=== PATIENT | male | born 1975 | race Caucasian/White ===

== ENCOUNTER 2024-12-10 14:46 | Emergency (ER) | payer OTHER ==
[~2024-12-10 14:46] MED LIST: Iopamidol-370 76% 500 ML MDV (1 ML CHARGE) ONE
[2024-12-10] MEDS ORDERED: Pantoprazole 40 MG VIAL ONE (15:43)
[2024-12-10] MEDS ORDERED: Ondansetron PF 4 MG/2 ML Vial ONE (15:43)
[2024-12-10] MEDS ORDERED: Famotidine/PF 20 mg/2ml Vial ONE (15:43)
[2024-12-10 16:04] LABS: #Basophils 0.06 10x3/uL (0.0-0.2); #Eosinophils 0.13 10x3/uL (0.0-0.7); #Monocytes 0.34 10x3/uL (0.11-0.59); #Neutrophils 4.50 10x3/uL (1.40-6.50); %Basophils 0.8 % (0.0-1.0); %Eosinophils 1.7 % (0.0-10.0); %Lymphocytes 33.1 % (21.0-51.0); %Monocytes 4.5 % (0.0-10.0); %Neutrophils 59.5 % (42.0-75.0); Hematocrit 36.9 % (42.0-52.0); Hemoglobin 11.9 g/dL (14.0-18.0); Mean Corpuscular Hemoglobin 27.7 pg (27.0-31.0); Mean Corpuscular Volume 85.8 fL (78.0-98.0); Platelet Count 212 10x3/uL (130-400); Red Blood Cell (RBC) Count 4.30 mill/uL (4.70-6.10); White Blood Cell (WBC) Count 7.56 10x3/uL (4.8-10.8)
[2024-12-10 16:29] LABS: ALT (SGPT) 23 U/L (Less than 45); AST (SGOT) 50 U/L (11-34); Albumin 4.0 g/dL (3.1-4.5); Alkaline Phosphatase 90 U/L (40-110); Anion Gap 17 mmol/L (10-20); BUN (Urea Nitrogen) 4 mg/dL (8.9-20.6); Bilirubin, Total 1.2 mg/dL (0.3-1.2); Calc. Creatinine Clearance 0 mL/min (70-130); Calcium 9.6 mg/dL (7.8-10.44); Carbon Dioxide 21 mmol/L (22-29); Chloride 99 mmol/L (98-107); Globulin 3.4 g/dL (2.4-3.5); Glucose 86 mg/dL (70-105); Lipase 12 U/L (8-78); Potassium 3.0 mmol/L (3.5-5.1); Sodium 134 mmol/L (136-145)
[2024-12-10] MEDS ORDERED: Potassium Bicarbonate/Cit Ac 20 MEQ TAB ONE (16:40)
== END 2024-12-10 17:10 | disposition home or self-care (01) ==
LOC: ERS 14:46
DX: R11.2 Nausea with vomiting, unspecified (principal); R19.7 Diarrhea, unspecified; K76.0 Fatty (change of) liver, not elsewhere classified; E87.6 Hypokalemia; J44.9 Chronic obstructive pulmonary disease, unspecified; E11.9 Type 2 diabetes mellitus without complications; Z87.891 Personal history of nicotine dependence; Z55.6 Problems related to health literacy
CPT/HCPCS: 74177; 80053; 83690; 85025; 96361; 96374; 96375; J1308; J2405; J2470

== ENCOUNTER 2024-12-18 21:09 | Inpatient (IN) | payer OTHER ==
[2024-12-18] MEDS ORDERED: Etomidate 40 MG (20 mL) VIAL ONE (21:15)
[2024-12-18] MEDS ORDERED: Rocuronium Bromide 10 MG/ML (10ML VIAL) ONE (21:15)
[2024-12-18 21:48] LABS: Actual Bicarbonate (HCO3a) 21.1 mEq/L (22-28); Analyzer IN Cardio ER; Base Excess (BEa) -3.4 mEq/L (-2.0 to +3.0); CO2 Tension 35.9 mmHg (35.0-45.0); Calcium, Ionized (arterial) 0.98 mmol/L (1.12-1.30); Hematocrit-ABG 32 % (42.0-52.0); Hemoglobin (Hb) 10.9 g/dL (14.0-18.0); O2 Tension (PaO2), arterial 209.2 mmHg (80.0-100.0); Potassium - ABG Lab 2.23 mmol/L (3.70-5.30); pH, Arterial 7.387 (7.35-7.45)
[2024-12-18 21:51] LABS: #Basophils 0.06 10x3/uL (0.0-0.2); #Eosinophils 0.13 10x3/uL (0.0-0.7); #Monocytes 0.22 10x3/uL (0.11-0.59); #Neutrophils 4.84 10x3/uL (1.40-6.50); %Basophils 0.7 % (0.0-1.0); %Eosinophils 1.6 % (0.0-10.0); %Lymphocytes 31.4 % (21.0-51.0); %Monocytes 2.7 % (0.0-10.0); %Neutrophils 59.0 % (42.0-75.0); Hematocrit 35.2 % (42.0-52.0); Hemoglobin 11.3 g/dL (14.0-18.0); Mean Corpuscular Hemoglobin 27.4 pg (27.0-31.0); Mean Corpuscular Volume 85.4 fL (78.0-98.0); Platelet Count 219 10x3/uL (130-400); Red Blood Cell (RBC) Count 4.12 mill/uL (4.70-6.10); White Blood Cell (WBC) Count 8.21 10x3/uL (4.8-10.8)
[2024-12-18 22:08] LABS: INR-International Normal Ratio 1.3; Prothrombin Time 15.9 sec (12.0-14.7)
[2024-12-18 22:09] LABS: PTT 45.1 sec (22.9-36.1)
[2024-12-18 22:10] LABS: Lipase 19 U/L (8-78); Magnesium 1.4 mg/dL (1.6-2.6)
[2024-12-18 22:11] LABS: Acetaminophen Less than 10 mcg/mL (Less than 10); Salicylate Less than 8.0 mg/dL (Less than 8.0)
[2024-12-18] MEDS ORDERED: Magnesium 2 GM/50 ML BAG (IN WATER) ONE ×2 (22:49→23:23)
[2024-12-18] MEDS ORDERED: Potassium Chloride 20 MEQ (100 mL) BAG ONE (23:10)
[2024-12-18] MEDS ORDERED: Cefepime 2 GM VIAL ONE (23:10)
[2024-12-18 23:24] LABS: Bacteria/HPF None Seen HPF (None Seen); CAUTI Indications for Culture Alt mental st,lethar; Glucose, Urine (Dipstick) Normal (Negative); Leukocyte Negative Leu/uL (Negative); Protein, Urine (Dipstick) 10 mg/dL (Neg-Trace); RBC/HPF None Seen HPF (0-3); Specific Gravity, Urine 1.002 (1.002-1.036); WBC/HPF None Seen HPF (0-3)
[2024-12-18 23:25] LABS: ALT (SGPT) 37 U/L (Less than 45); AST (SGOT) 93 U/L (11-34); Albumin 3.2 g/dL (3.1-4.5); Alkaline Phosphatase 104 U/L (40-110); Anion Gap 18 mmol/L (10-20); BUN (Urea Nitrogen) 5 mg/dL (8.9-20.6); Bilirubin, Total 1.2 mg/dL (0.3-1.2); Calc. Creatinine Clearance 0 mL/min (70-130); Calcium 8.2 mg/dL (7.8-10.44); Carbon Dioxide 23 mmol/L (22-29); Chloride 93 mmol/L (98-107); Globulin 3.3 g/dL (2.4-3.5); Glucose 113 mg/dL (70-105); Potassium 2.4 mmol/L (3.5-5.1); Sodium 132 mmol/L (136-145)
[2024-12-18 23:28] LABS: Urine Culture Reflex No No
[2024-12-18] MEDS ORDERED: Magnesium 5 GM/10 ML Abboject SYRINGE ONE (23:33)
[2024-12-18 23:41] LABS: Cocaine Metabolite Screen Negative (Negative); THC/Cannabinoid Screen Negative (Negative); Tricyclic Screen Negative (Negative)
[2024-12-18] MEDS ORDERED: Potassium Bicarbonate/Cit Ac 20 MEQ TAB ONE (23:52)
[2024-12-19] MEDS ORDERED: VANCOMYCIN 2 GRAM/400 ML BAG ONE (00:21)
[2024-12-19] MEDS ORDERED: Potassium Chloride 20 MEQ (100 mL) BAG ONE (01:28)
[2024-12-19 01:49] VITALS: BMI 31.7
[2024-12-19] MEDS ORDERED: Ventilator Sedation Protocol 1 EACH FS SCH (02:15)
[2024-12-19] MEDS ORDERED: Acetaminophen 325 MG TAB PO PRN (02:20)
[2024-12-19] MEDS ORDERED: Ondansetron PF 4 MG/2 ML Vial IVP PRN ×2 (02:20→12:39)
[2024-12-19] MEDS ORDERED: Calcium Carbonate 500 MG ChewTAB PO PRN (02:20)
[2024-12-19] MEDS ORDERED: DISCONTINUE PREVIOUS NARCOTIC PAIN MEDICATIONS AND BENZODIAZEPINES FS SCH (02:30)
[2024-12-19] MEDS ORDERED: Propofol BOLUS 1,000 MG/100 ML VIAL IV PRN (02:30)
[2024-12-19] MEDS ORDERED: Fentanyl BOLUS 100 ML IVPB PRN (02:30)
[2024-12-19] MEDS ORDERED: Electrolyte Replacement Protocol 1 EACH FS PRN (02:30)
[2024-12-19] MEDS: Vasopressin In 0.9 % NaCl 40 UNIT in Premix 1 BAG IV SCH (07:00)
[2024-12-19 07:05] VITALS: BP 79/55
[2024-12-19 07:51] LABS: #Basophils Less than 0.03 10x3/uL (0.0-0.2); #Eosinophils 0.08 10x3/uL (0.0-0.7); #Monocytes 0.13 10x3/uL (0.11-0.59); #Neutrophils 2.82 10x3/uL (1.40-6.50); %Basophils 0.5 % (0.0-1.0); %Eosinophils 2.2 % (0.0-10.0); %Lymphocytes 15.9 % (21.0-51.0); %Monocytes 3.5 % (0.0-10.0); %Neutrophils 76.0 % (42.0-75.0); Hematocrit 30.8 % (42.0-52.0); Hemoglobin 10.1 g/dL (14.0-18.0); Mean Corpuscular Hemoglobin 28.0 pg (27.0-31.0); Mean Corpuscular Volume 85.3 fL (78.0-98.0); Platelet Count 147 10x3/uL (130-400); Red Blood Cell (RBC) Count 3.61 mill/uL (4.70-6.10); White Blood Cell (WBC) Count 3.71 10x3/uL (4.8-10.8)
[2024-12-19 08:09] LABS: ALT (SGPT) 33 U/L (Less than 45); AST (SGOT) 85 U/L (11-34); Albumin 2.9 g/dL (3.1-4.5); Alkaline Phosphatase 142 U/L (40-110); Anion Gap 14 mmol/L (10-20); BUN (Urea Nitrogen) 5 mg/dL (8.9-20.6); Bilirubin, Total 1.0 mg/dL (0.3-1.2); Calc. Creatinine Clearance 110 mL/min (70-130); Calcium 8.4 mg/dL (7.8-10.44); Carbon Dioxide 24 mmol/L (22-29); Chloride 104 mmol/L (98-107); Globulin 3.1 g/dL (2.4-3.5); Glucose 95 mg/dL (70-105); Potassium 3.6 mmol/L (3.5-5.1); Sodium 138 mmol/L (136-145)
[2024-12-19] MEDS: Pantoprazole 40 MG VIAL IVP SCH (08:09)
[2024-12-19] MEDS: NOREPINEPHRINE 8 MG/250 ML-D5W 250 ML IVPB PRN (08:09)
[2024-12-19] MEDS: Enoxaparin 40 MG (0.4 mL) SYRINGE SC SCH (08:09)
[2024-12-19 08:56] LABS: Magnesium 1.8 mg/dL (1.6-2.6)
[2024-12-19 09:03] VITALS: TEMP 103.2
[2024-12-19] MEDS: Magnesium 2 GM/50 ML(in water) 2 GM in Premix 1 BAG IVPB SCH (09:25)
[2024-12-19 10:22] LABS: Vancomycin, Random 26.7 ug/mL (See Comment)
[2024-12-19] MEDS ORDERED: Scopolamine 1 mg/72 hour Patch TD PRN (12:39)
[2024-12-19] MEDS ORDERED: Glycopyrrolate 0.4 MG/ 2 ML VIAL SLOW IVP PRN (12:42)
== END 2024-12-19 13:30 | disposition expired | DRG 308 ==
LOC: ERS 21:09 → ERHOLD 12-19 → CCU 12-19 04:09
PROVIDERS: ADMIT Student in an Organized Health Care Education/Training Program; ATTEND Hospitalist
PROC: 4A03XR1 Measurement of Arterial Saturation, Peripheral, External Approach (ICD-10-PCS; principal; 2024-12-18)
PROC: 0DH67UZ Insertion of Feeding Device into Stomach, Via Natural or Artificial Opening (ICD-10-PCS; 2024-12-18)
PROC: 0BH17EZ Insertion of Endotracheal Airway into Trachea, Via Natural or Artificial Opening (ICD-10-PCS; 2024-12-18)
PROC: 3E03329 Introduction of Other Anti-infective into Peripheral Vein, Percutaneous Approach (ICD-10-PCS; 2024-12-18)
PROC: XX20X89 Monitoring of Brain Electrical Activity, Computer-aided Detection and Notification, New Technology Group 9 (ICD-10-PCS; 2024-12-19)
PROC: 06HY33Z Insertion of Infusion Device into Lower Vein, Percutaneous Approach (ICD-10-PCS; 2024-12-19)
PROC: 5A1935Z Respiratory Ventilation, Less than 24 Consecutive Hours (ICD-10-PCS; 2024-12-19)
PROC: 3E033XZ Introduction of Vasopressor into Peripheral Vein, Percutaneous Approach (ICD-10-PCS; 2024-12-19)
DX: I47.20 Ventricular tachycardia, unspecified (principal); J96.00 Acute respiratory failure, unspecified whether with hypoxia or hypercapnia; Z51.5 Encounter for palliative care; E11.9 Type 2 diabetes mellitus without complications; J44.9 Chronic obstructive pulmonary disease, unspecified; G89.29 Other chronic pain; N18.9 Chronic kidney disease, unspecified; Z91.040 Latex allergy status; Z98.890 Other specified postprocedural states; Z91.018 Allergy to other foods; I46.9 Cardiac arrest, cause unspecified; E83.42 Hypomagnesemia; E87.6 Hypokalemia; K21.9 Gastro-esophageal reflux disease without esophagitis; Z72.0 Tobacco use; G93.89 Other specified disorders of brain; Z79.899 Other long term (current) drug therapy
CPT/HCPCS: 31500; 36415; 36416; 51702; 70450; 71045; 71275; 74177; 80053; 80202; 80306; 80307; 81001; 82533; 82805; 83605; 83690; 83735; 83880; 84100; 84145; 84443; 84484; 85025; 85610; 85730; 87040; 93005; 93306; 94002; 94003; 96361; 96365; 96366; 96368; 96375; 99292; J0282; J0692; J1100; J1650; J2060; J2250; J2270; J2470; J2543; J3375; J3475; J3480; J7070; J7120; Q9967